=== PATIENT | female | born 1975 | race Caucasian/White ===

== ENCOUNTER → 2017-05-06 | Outpatient (CLI) | payer BC ==
[2017-05-06 13:17] LABS: CREATININE 0.9 mg/dL (0.6-1.3)
== END ==
LOC: M.CT 12:53 → M.LAB 13:30 → M.CT 15:00
PROVIDERS: Family Medicine
DX: N28.1 Cyst of kidney, acquired (principal); K42.9 Umbilical hernia without obstruction or gangrene; K76.0 Fatty (change of) liver, not elsewhere classified; K44.9 Diaphragmatic hernia without obstruction or gangrene

== ENCOUNTER → 2017-05-28 | Outpatient (CLI) | payer BC | LOC: M.NUC 07:35 | DX: R10.11 Right upper quadrant pain (principal); Z68.45 Body mass index [BMI] 70 or greater, adult ==

== ENCOUNTER → 2018-04-23 | Outpatient (CLI) | payer BC | LOC: M.ULTRA 13:30 | DX: M25.462 Effusion, left knee (principal) ==

== ENCOUNTER 2020-11-16 13:15 | Emergency (ER) | payer BC ==
[~2020-11-16] VITALS: Ht 160 cm; Wt 174.6 kg
[2020-11-16] MEDS ORDERED: NOVOLOG100 UNIT/M SUBQ (13:38)
[2020-11-16] MEDS ORDERED: TRULICITY3 MG/0.5 M SUBQ (13:38)
[2020-11-16] MEDS ORDERED: METFORMIN HCL500 M3 PO (13:38)
[2020-11-16] MEDS ORDERED: JARDIANCE25 MG PO (13:39)
[2020-11-16] MEDS ORDERED: L-THROXINE (13:39)
[2020-11-16] MEDS ORDERED: LIPITOR 10 MG10 M1 PO (13:40)
[2020-11-16] MEDS ORDERED: BUPROPION XL300 MG PO (13:40)
[2020-11-16] MEDS ORDERED: FUROSEMIDE 20 M20 MG PO (13:40)
[2020-11-16] MEDS ORDERED: PRADAXA150 MG PO (13:41)
[2020-11-16] MEDS ORDERED: LEXAPRO 10 MG T10 M2 PO (13:41)
[2020-11-16] MEDS ORDERED: KLOR-CON 10 ER10 MEQ PO (13:41)
[2020-11-16] MEDS ORDERED: BARIATRIC MV-I1 EACH PO (13:42)
[2020-11-16] MEDS ORDERED: COZAAR 25 MG TA25 M1 PO (13:42)
[2020-11-16] MEDS ORDERED: CALCIUM 1,0001 EACH PO (13:43)
[2020-11-16] MEDS ORDERED: PERFECT IRON25 MG PO (13:44)
[2020-11-16] MEDS ORDERED: TYLENOL PM EX-1 EACH PO (13:45)
[2020-11-16] MEDS ORDERED: NASCOBAL1 EACH PO (13:46)
[2020-11-16 13:52] LABS: HEMATOCRIT 44.1 % (37.0-47.0); HEMOGLOBIN 14.9 gm/dL (12.0-15.0); MCH 30.3 pg (26.0-34.0); MCHC 33.8 g/dL (28.0-37.0); MCV 89.6 fL (80.0-100.0); MPV 7.8 fl. (7.2-11.1); RBC 4.93 mil/uL (4.20-5.00); RDW-CV 15.4 % (10.5-14.5); WBC 10.2 thou/uL (4.0-11.0)
[2020-11-16 13:58] LABS: CALCIUM 9.2 mg/dL (8.5-10.1); POTASSIUM 3.8 mmol/L (3.5-5.1)
[2020-11-16 14:04] LABS: ALBUMIN 3.6 g/dL (3.4-5.0); TOTAL BILIRUBIN 0.3 mg/dL (<0.1-1.0); TOTAL PROTEIN 7.6 g/dL (6.4-8.2)
[2020-11-16 16:51] VITALS: BP 123/54
--- NOTE | 2020-11-17 15:08 | EKG ---
[place] [address] ELECTROCARDIOGRAM REPORT Name: PENNY HUNTLEY Room: [facility]#: [id number] Admission: 11/16/20 Attend Phys: Discharge: 11/16/20 Date of : 77 Date of Service: 11/16/20 1320 Report #: [id number] THIS REPORT FOR: //name// [facility] ED Test Date: 2020-11-16 Test Time: 13:20:48 Pat Name: PENNY HUNTLEY Department: Room: Gender: Service Line Coordinator: CHECO : 1975 Requested By: Daniel Larson Order Number: [id number] MD: Ja Zimmerman Measurements Intervals [place] Rate: 110 P: 34 WV: 151 QRS: -9 QRSD: 86 T: 23 QT: 309 QTc: 419 Interpretive Statements Sinus tachycardia Anterior infarct, old possible Baseline wander in lead(s) V1 No previous ECG available for comparison Electronically Signed On 11-17-2020 15:08:19 CDT by Ja Zimmerman [email or web address] <ELECTRONICALLY SIGNED> By: Ja Zimmerman MD, [facility] 11/17/20 1508 1320 1320 Ja Zimmerman MD, [facility] /EPI
== END 2020-11-16 16:52 | disposition home or self-care (01) ==
LOC: M.ERS 13:15
PROVIDERS: Emergency Medicine
DX: R07.89 Other chest pain (principal); I10 Essential (primary) hypertension; E03.9 Hypothyroidism, unspecified; E11.9 Type 2 diabetes mellitus without complications; G47.30 Sleep apnea, unspecified; Z88.0 Allergy status to penicillin

== ENCOUNTER 2021-02-03 07:19 | Emergency (ER) | payer BC ==
[~2021-02-03] VITALS: Ht 162.6 cm; Wt 174.6 kg
[~2021-02-03 07:19] MED LIST: BARIATRIC MV-I1 EACH PO; BUPROPION XL300 MG PO; CALCIUM 1,0001 EACH PO; COZAAR 25 MG TA25 M1 PO; FUROSEMIDE 20 M20 MG PO; JARDIANCE25 MG PO; KLOR-CON 10 ER10 MEQ PO; L-THROXINE; LEXAPRO 10 MG T10 M2 PO; LIPITOR 10 MG10 M1 PO; METFORMIN HCL500 M3 PO; NASCOBAL1 EACH PO; NOVOLOG100 UNIT/M SUBQ; PERFECT IRON25 MG PO; PRADAXA150 MG PO; TRULICITY3 MG/0.5 M SUBQ; TYLENOL PM EX-1 EACH PO
[2021-02-03] MEDS ORDERED: OTHER (07:39)
[2021-02-03] MEDS ORDERED: BACTRIM DS TAB1 EAC1 PO (07:39)
[2021-02-03 07:59] LABS: BE -2.5 mmol/L (-2 to +3); PCO2 VENOUS 41.4 mmHg (41.0-51.0); PO2 VENOUS 28.1 mmHg (35.0-45.0)
[2021-02-03 08:03] LABS: ABSOLUTE LYMPHOCYTES 1.1 thou/uL (0.8-5.3); ABSOLUTE MONOCYTES 0.2 thou/uL (0.0-1.2); BASOPHILS 0.8 %; EOSINOPHILS 0.9 %; HEMATOCRIT 40.5 % (37.0-47.0); HEMOGLOBIN 13.1 gm/dL (12.0-15.0); LYMPHOCYTES 25.1 %; MCH 28.4 pg (26.0-34.0); MCHC 32.4 g/dL (28.0-37.0); MCV 87.7 fL (80.0-100.0); MONOCYTES 4.8 %; MPV 7.8 fl. (7.2-11.1); NUCLEATED RBCS 0 /100WBC; PLATELET COUNT* 299 thou/uL (150-400); POLYS 68.4 %; RBC 4.62 mil/uL (4.20-5.00); RDW-CV 15.1 % (10.5-14.5); WBC 4.3 thou/uL (4.0-11.0)
[2021-02-03 08:15] LABS: CALCIUM 8.2 mg/dL (8.5-10.1); CREATININE 0.9 mg/dL (0.6-1.3); POTASSIUM 3.5 mmol/L (3.5-5.1)
[2021-02-03 08:19] LABS: ALBUMIN 3.1 g/dL (3.4-5.0); TOTAL BILIRUBIN 0.2 mg/dL (<0.1-1.0); TOTAL PROTEIN 6.4 g/dL (6.4-8.2)
[2021-02-03 08:30] LABS: URINE BILIRUBIN NEGATIVE (Negative); URINE BLOOD NEGATIVE (Negative); URINE CLARITY CLOUDY; URINE COLOR YELLOW; URINE GLUCOSE-RANDOM NEGATIVE (Negative); URINE KETONES TRACE (Negative); URINE LEUKOCYTES-REFLEX NEGATIVE (Negative); URINE NITRITE-REFLEX NEGATIVE (Negative); URINE PROTEIN 1+ (Negative); URINE SPECIFIC GRAVITY >= 1.030 (1.005-1.030); URINE UROBILINOGEN 0.2 E.U./dl (0.2-1.0)
[2021-02-03] MEDS ORDERED: TESSALON PERLE100 M1 PO (10:16)
[2021-02-03] MEDS ORDERED: ZOFRAN ODT4 MG DISSOLVE (10:16)
--- NOTE | 2021-02-03 10:23 | EKG ---
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
[2021-02-03 10:30] VITALS: BP 128/61
== END 2021-02-03 10:30 | disposition home or self-care (01) ==
LOC: M.ERS 07:19
PROVIDERS: Emergency Medicine Emergency Medical Services
DX: U07.1 COVID-19 (principal); K52.9 Noninfective gastroenteritis and colitis, unspecified; R11.2 Nausea with vomiting, unspecified; E11.9 Type 2 diabetes mellitus without complications; E03.9 Hypothyroidism, unspecified; I10 Essential (primary) hypertension; Z98.890 Other specified postprocedural states; Z79.4 Long term (current) use of insulin; Z79.899 Other long term (current) drug therapy; Z79.2 Long term (current) use of antibiotics; Z88.0 Allergy status to penicillin

== ENCOUNTER 2021-02-04 23:16 | Inpatient (IN) | payer BC ==
[~2021-02-04] VITALS: Ht 162.6 cm; Wt 174.6 kg
[~2021-02-04 23:16] MED LIST changes: +BACTRIM DS TAB1 EAC1 PO; +OTHER; +TESSALON PERLE100 M1 PO; +ZOFRAN ODT4 MG DISSOLVE
[2021-02-04 23:17] VITALS: BP 104/54
[2021-02-04 23:55] LABS: ABSOLUTE EOSINOPHILS 0.1 thou/uL (0.0-0.7); ABSOLUTE LYMPHOCYTES 1.1 thou/uL (0.8-5.3); ABSOLUTE MONOCYTES 0.2 thou/uL (0.0-1.2); ABSOLUTE NEUTROPHILS 3.4 thou/uL (1.6-8.1); BASOPHILS 0.8 %; EOSINOPHILS 1.1 %; HEMATOCRIT 39.9 % (37.0-47.0); HEMOGLOBIN 12.9 gm/dL (12.0-15.0); LYMPHOCYTES 23.6 %; MCH 28.6 pg (26.0-34.0); MCHC 32.4 g/dL (28.0-37.0); MCV 88.3 fL (80.0-100.0); MONOCYTES 3.2 %; MPV 7.8 fl. (7.2-11.1); NUCLEATED RBCS 0 /100WBC; PLATELET COUNT* 284 thou/uL (150-400); POLYS 71.3 %; RBC 4.52 mil/uL (4.20-5.00); RDW-CV 15.1 % (10.5-14.5); WBC 4.8 thou/uL (4.0-11.0)
[2021-02-05] VITALS (7 sets, daily range): BP systolic 97–140; BP diastolic 59–87
[2021-02-05] LABS: CALCIUM 8.1 mg/dL (8.5-10.1); CREATININE 0.9 mg/dL (0.6-1.3)
[2021-02-05 00:10] LABS: ALBUMIN 2.7 g/dL (3.4-5.0); MAGNESIUM 1.9 mg/dL (1.8-2.4); TOTAL BILIRUBIN 0.3 mg/dL (<0.1-1.0); TOTAL PROTEIN 6.9 g/dL (6.4-8.2)
--- NOTE | 2021-02-05 16:12 | EKG ---
[place] [address] ELECTROCARDIOGRAM REPORT Name: PENNY HUNTLEY Room: [address] ADM IN .R.#: [id number] Admission: 02/05/21 Attend Phys: Marlena Marie, Discharge: Date of : 77 Date of Service: 02/04/21 2319 Report #: [id number] THIS REPORT FOR: //name// [facility] ED Test Date: 2021-02-04 Test Time: 23:19:03 Pat Name: PENNY HUNTLEY Department: Room: [facility] Gender: F Print Designer: [place] : 1975 Requested By: Nubia Chavis Order Number: [id number] MD: Wolf Lee Measurements Intervals [place] Rate: 110 P: 47 [place]: 173 QRS: 22 QRSD: 82 T: 24 QT: 320 QTc: 433 Interpretive Statements Sinus tachycardia poor r wave progression Ventricular premature complex Compared to ECG 02/03/2021 08:18:25 Ventricular premature complex(es) now present pvc noted Electronically Signed On 02-05-2021 16:11:58 CDT by Wolf Lee [email or web address] <ELECTRONICALLY SIGNED> By: Wolf Lee MD, FACC 02/05/21 1611 18 18 Wolf Lee MD, FACC /EPI
[2021-02-05 21:04] LABS: INFLUENZA A ANTIGEN Negative (Negative); INFLUENZA B ANTIGEN Negative (Negative)
[2021-02-06] VITALS: BP 118/70
[2021-02-06 03:49] VITALS: BP 104/57
[2021-02-06 04:10] LABS: HEMATOCRIT 36.3 % (37.0-47.0); HEMOGLOBIN 12.1 gm/dL (12.0-15.0); MCH 28.7 pg (26.0-34.0); MCHC 33.3 g/dL (28.0-37.0); MCV 86.4 fL (80.0-100.0); RBC 4.2 mil/uL (4.20-5.00); RDW-CV 15.2 % (10.5-14.5); WBC 3.9 thou/uL (4.0-11.0)
[2021-02-06 04:31] LABS: ALBUMIN 2.5 g/dL (3.4-5.0); CREATININE 0.8 mg/dL (0.6-1.3); MAGNESIUM 2.3 mg/dL (1.8-2.4); POTASSIUM 3.7 mmol/L (3.5-5.1); TOTAL BILIRUBIN 0.2 mg/dL (<0.1-1.0); TOTAL PROTEIN 6.5 g/dL (6.4-8.2)
[2021-02-06 08:15] VITALS: BP 120/65
[2021-02-06 12:00] VITALS: BP 121/61
[2021-02-06 16:00] VITALS: BP 121/70
[2021-02-06 20:00] VITALS: BP 136/76
[2021-02-07 00:36] VITALS: BP 117/51
[2021-02-07 04:28] VITALS: BP 141/55
[2021-02-07 04:37] LABS: HEMATOCRIT 35.1 % (37.0-47.0); HEMOGLOBIN 11.5 gm/dL (12.0-15.0); MCH 28.5 pg (26.0-34.0); MCHC 32.8 g/dL (28.0-37.0); MPV 8.1 fl. (7.2-11.1); RBC 4.03 mil/uL (4.20-5.00); RDW-CV 15.1 % (10.5-14.5); WBC 5.5 thou/uL (4.0-11.0)
[2021-02-07 04:56] LABS: ALBUMIN 2.4 g/dL (3.4-5.0); CALCIUM 8.3 mg/dL (8.5-10.1); CREATININE 0.7 mg/dL (0.6-1.3); MAGNESIUM 2.2 mg/dL (1.8-2.4); POTASSIUM 3.6 mmol/L (3.5-5.1); TOTAL BILIRUBIN 0.2 mg/dL (<0.1-1.0); TOTAL PROTEIN 6.2 g/dL (6.4-8.2)
[2021-02-07 08:00] VITALS: BP 130/61
[2021-02-07 12:51] VITALS: BP 139/73
[2021-02-07 16:30] VITALS: BP 131/63
[2021-02-07 20:00] VITALS: BP 127/68
[2021-02-08] VITALS (7 sets, daily range): BP systolic 104–142; BP diastolic 51–70
[2021-02-08 07:53] LABS: CALCIUM 8.2 mg/dL (8.5-10.1); CREATININE 0.6 mg/dL (0.6-1.3); POTASSIUM 3.5 mmol/L (3.5-5.1)
[2021-02-09 04:43] VITALS: BP 118/67
[2021-02-09 09:00] VITALS: BP 148/101
[2021-02-09 12:00] VITALS: BP 131/54
[2021-02-09] MEDS ORDERED: LEVOFLOXACIN500 MG PO (16:44)
[2021-02-09] MEDS ORDERED: PREDNISONE 10 M10 MG PO (16:44)
[2021-02-09] MEDS ORDERED: VENTOLIN HFA INH8 GM INH (16:44)
[2021-02-09 17:27] VITALS: BP 131/54
[2021-02-09 19:20] VITALS: BP 131/54
== END 2021-02-09 16:30 | disposition home or self-care (01) | DRG 177 ==
LOC: M.ERS 23:16 → M.TBA-ER 02-05 00:26 → M.ORTHSURG 02-05 00:26
PROVIDERS: Emergency Medicine; ADMIT Internal Medicine; ATTEND Internal Medicine
PROC: 5A09357 Assistance with Respiratory Ventilation, Less than 24 Consecutive Hours, Continuous Positive Airway Pressure (ICD-10-PCS; 2021-02-06)
PROC: 5A0935A Assistance with Respiratory Ventilation, Less than 24 Consecutive Hours, High Flow/Velocity Cannula (ICD-10-PCS; 2021-02-07)
PROC: 5A09357 Assistance with Respiratory Ventilation, Less than 24 Consecutive Hours, Continuous Positive Airway Pressure (ICD-10-PCS; 2021-02-08)
PROC: 5A09357 Assistance with Respiratory Ventilation, Less than 24 Consecutive Hours, Continuous Positive Airway Pressure (ICD-10-PCS; 2021-02-08)
PROC: XW13325 Transfusion of Convalescent Plasma (Nonautologous) into Peripheral Vein, Percutaneous Approach, New Technology Group 5 (ICD-10-PCS; principal; 2021-02-09)
DX: U07.1 COVID-19 (principal); J12.82 Pneumonia due to coronavirus disease 2019; J96.01 Acute respiratory failure with hypoxia; E24.9 Cushing's syndrome, unspecified; E11.9 Type 2 diabetes mellitus without complications; E03.9 Hypothyroidism, unspecified; E78.5 Hyperlipidemia, unspecified; Z88.0 Allergy status to penicillin; I10 Essential (primary) hypertension

== ENCOUNTER → 2021-02-28 | Outpatient (CLI) | payer BC ==
[~2021-02-28] MED LIST changes: +LEVOFLOXACIN500 MG PO; +PREDNISONE 10 M10 MG PO; +VENTOLIN HFA INH8 GM INH
== END ==
LOC: M.WC 10:00
PROVIDERS: ATTEND Surgery
DX: T81.31XD Disruption of external operation (surgical) wound, not elsewhere classified, subsequent encounter (principal); E11.628 Type 2 diabetes mellitus with other skin complications; E24.9 Cushing's syndrome, unspecified; E03.9 Hypothyroidism, unspecified; I89.0 Lymphedema, not elsewhere classified; M19.90 Unspecified osteoarthritis, unspecified site; I83.90 Asymptomatic varicose veins of unspecified lower extremity; L84 Corns and callosities; E66.01 Morbid (severe) obesity due to excess calories; G47.30 Sleep apnea, unspecified; F41.9 Anxiety disorder, unspecified; Z86.16 Personal history of COVID-19; Z86.711 Personal history of pulmonary embolism; Z87.891 Personal history of nicotine dependence; Z79.4 Long term (current) use of insulin; Z79.899 Other long term (current) drug therapy; Z68.44 Body mass index [BMI] 60.0-69.9, adult; Z90.89 Acquired absence of other organs; Z98.890 Other specified postprocedural states; Y83.8 Other surgical procedures as the cause of abnormal reaction of the patient, or of later complication, without mention of misadventure at the time of the procedure

== ENCOUNTER → 2021-03-07 | Outpatient (CLI) | payer BC | LOC: M.WC 10:00 | PROVIDERS: ATTEND Surgery | DX: T81.31XD Disruption of external operation (surgical) wound, not elsewhere classified, subsequent encounter (principal); E11.628 Type 2 diabetes mellitus with other skin complications; L84 Corns and callosities; E24.9 Cushing's syndrome, unspecified; E03.9 Hypothyroidism, unspecified; I89.0 Lymphedema, not elsewhere classified; I83.90 Asymptomatic varicose veins of unspecified lower extremity; E66.01 Morbid (severe) obesity due to excess calories; G47.30 Sleep apnea, unspecified; K21.9 Gastro-esophageal reflux disease without esophagitis; M19.90 Unspecified osteoarthritis, unspecified site; F41.9 Anxiety disorder, unspecified; Z86.16 Personal history of COVID-19; Z86.711 Personal history of pulmonary embolism; Z87.891 Personal history of nicotine dependence; Z79.4 Long term (current) use of insulin; Z68.44 Body mass index [BMI] 60.0-69.9, adult; Z90.89 Acquired absence of other organs; Y83.8 Other surgical procedures as the cause of abnormal reaction of the patient, or of later complication, without mention of misadventure at the time of the procedure ==

== ENCOUNTER 2021-03-13 11:14 | Emergency (ER) | payer BC ==
[~2021-03-13] VITALS: Ht 162.6 cm; Wt 163.3 kg
[~2021-03-13 11:14] MED LIST changes: -L-THROXINE; -LIPITOR 10 MG10 M1 PO; +LIPITOR 20 MG T20 M1 PO; +SYNTHROID25 MC1 PO
[2021-03-13] MEDS ORDERED: PRILOSEC OTC20 MG PO (11:29)
[2021-03-13 11:43] LABS: URINE BLOOD NEGATIVE (Negative); URINE CLARITY CLEAR; URINE COLOR YELLOW; URINE GLUCOSE-RANDOM NEGATIVE (Negative); URINE KETONES 1+ (Negative); URINE LEUKOCYTES-REFLEX NEGATIVE (Negative); URINE NITRITE-REFLEX NEGATIVE (Negative); URINE PROTEIN NEGATIVE (Negative); URINE SPECIFIC GRAVITY >= 1.030 (1.005-1.030); URINE UROBILINOGEN 0.2 E.U./dl (0.2-1.0)
[2021-03-13 11:47] LABS: URINE BILIRUBIN 2+ (Negative)
[2021-03-13 11:56] LABS: ABSOLUTE BASOPHILS 0.1 thou/uL (0.0-0.2); ABSOLUTE EOSINOPHILS 0.1 thou/uL (0.0-0.7); ABSOLUTE LYMPHOCYTES 2.6 thou/uL (0.8-5.3); ABSOLUTE MONOCYTES 0.6 thou/uL (0.0-1.2); ABSOLUTE NEUTROPHILS 5.1 thou/uL (1.6-8.1); BASOPHILS 1.1 %; EOSINOPHILS 1.5 %; HEMATOCRIT 39.8 % (37.0-47.0); HEMOGLOBIN 13.3 gm/dL (12.0-15.0); LYMPHOCYTES 30.8 %; MCH 29.4 pg (26.0-34.0); MCHC 33.4 g/dL (28.0-37.0); MCV 88.2 fL (80.0-100.0); MONOCYTES 6.7 %; MPV 8.2 fl. (7.2-11.1); NUCLEATED RBCS 0 /100WBC; PLATELET COUNT* 370 thou/uL (150-400); POLYS 59.9 %; RBC 4.51 mil/uL (4.20-5.00); RDW-CV 16.3 % (10.5-14.5); WBC 8.6 thou/uL (4.0-11.0)
[2021-03-13 12:06] LABS: CALCIUM 8.8 mg/dL (8.5-10.1); CREATININE 0.7 mg/dL (0.6-1.3); POTASSIUM 5.4 mmol/L (3.5-5.1)
[2021-03-13 12:11] LABS: ALBUMIN 2.6 g/dL (3.4-5.0); TOTAL BILIRUBIN 0.5 mg/dL (<0.1-1.0)
--- NOTE | 2021-03-13 12:30 | EKG ---
[place] [address] ELECTROCARDIOGRAM REPORT Name: HUNTLEY,PENNY KENNETH Room: [facility]#: [id number] Admission: 03/13/21 Attend Phys: Discharge: Date of : 77 Date of Service: 03/13/21 1149 Report #: [id number] THIS REPORT FOR: //name// [facility] ED Test Date: 2021-03-13 Test Time: 11:49:51 Pat Name: PENNY HUNTLEY Department: Room: Gender: F Leadership Program Intern: HELEN : 1975 Requested By: Hever Sosa Order Number: [id number] MD: Wolf Lee Measurements Intervals [place] Rate: 106 P: 56 [place]: 156 QRS: 36 QRSD: 77 T: 22 QT: 350 QTc: 465 Interpretive Statements Sinus tachycardia Probable left atrial enlargement Compared to ECG 02/04/2021 23:19:03 Ventricular premature complex(es) no longer present Electronically Signed On 03-13-2021 12:30:09 ROLL GRINDER OPERATOR by Wolf Lee [email or web address] <ELECTRONICALLY SIGNED> By: Wolf Lee MD, [facility] 03/13/21 1230 1149 1149 oWlf Lee MD, [facility] /EPI
[2021-03-13] MEDS ORDERED: CIPRO500 M1 PO (13:47)
[2021-03-13] MEDS ORDERED: ZOFRAN ODT4 MG DISSOLVE (13:47)
[2021-03-13 14:24] VITALS: BP 129/53
== END 2021-03-13 14:25 | disposition home or self-care (01) ==
LOC: M.ERS 11:14
PROVIDERS: Emergency Medicine Emergency Medical Services
DX: R19.7 Diarrhea, unspecified (principal); R11.2 Nausea with vomiting, unspecified; E11.9 Type 2 diabetes mellitus without complications; G47.30 Sleep apnea, unspecified; E03.9 Hypothyroidism, unspecified; I10 Essential (primary) hypertension; Z86.16 Personal history of COVID-19; Z79.899 Other long term (current) drug therapy; Z79.4 Long term (current) use of insulin; Z88.0 Allergy status to penicillin

== ENCOUNTER → 2021-03-14 | Outpatient (CLI) | payer BC ==
[~2021-03-14] MED LIST changes: +CIPRO500 M1 PO; +PRILOSEC OTC20 MG PO
== END ==
LOC: M.WC 09:11
PROVIDERS: ATTEND Surgery
DX: T81.31XD Disruption of external operation (surgical) wound, not elsewhere classified, subsequent encounter (principal); E11.628 Type 2 diabetes mellitus with other skin complications; L84 Corns and callosities; E03.9 Hypothyroidism, unspecified; I89.0 Lymphedema, not elsewhere classified; M19.90 Unspecified osteoarthritis, unspecified site; I83.90 Asymptomatic varicose veins of unspecified lower extremity; G47.30 Sleep apnea, unspecified; E66.01 Morbid (severe) obesity due to excess calories; F41.9 Anxiety disorder, unspecified; Z68.44 Body mass index [BMI] 60.0-69.9, adult; Z86.16 Personal history of COVID-19; Z86.711 Personal history of pulmonary embolism; Z79.4 Long term (current) use of insulin; Z79.899 Other long term (current) drug therapy; Z87.891 Personal history of nicotine dependence; Z98.890 Other specified postprocedural states; Y83.8 Other surgical procedures as the cause of abnormal reaction of the patient, or of later complication, without mention of misadventure at the time of the procedure

== ENCOUNTER 2021-03-21 04:27 | Observation (INO) | payer BC ==
[~2021-03-21] VITALS: Ht 157.5 cm; Wt 177.5 kg
[2021-03-21 04:28] VITALS: BP 128/69
[2021-03-21 05:06] LABS: ABSOLUTE BASOPHILS 0.1 thou/uL (0.0-0.2); ABSOLUTE EOSINOPHILS 0.1 thou/uL (0.0-0.7); ABSOLUTE MONOCYTES 0.4 thou/uL (0.0-1.2); ABSOLUTE NEUTROPHILS 3.5 thou/uL (1.6-8.1); BASOPHILS 0.9 %; EOSINOPHILS 1.1 %; HEMATOCRIT 41.9 % (37.0-47.0); HEMOGLOBIN 13.3 gm/dL (12.0-15.0); LYMPHOCYTES 42.4 %; MCH 28.4 pg (26.0-34.0); MCHC 31.7 g/dL (28.0-37.0); MCV 89.6 fL (80.0-100.0); MONOCYTES 6.3 %; MPV 8.1 fl. (7.2-11.1); NUCLEATED RBCS 0 /100WBC; PLATELET COUNT* 300 thou/uL (150-400); POLYS 49.3 %; RBC 4.68 mil/uL (4.20-5.00); RDW-CV 16.5 % (10.5-14.5); WBC 7.1 thou/uL (4.0-11.0)
[2021-03-21 05:12] LABS: CALCIUM 8.6 mg/dL (8.5-10.1); CREATININE 0.7 mg/dL (0.6-1.3)
[2021-03-21 05:15] LABS: POTASSIUM 2.8 mmol/L (3.5-5.1)
[2021-03-21 05:17] LABS: ALBUMIN 2.5 g/dL (3.4-5.0); MAGNESIUM 1.9 mg/dL (1.8-2.4); TOTAL BILIRUBIN 0.2 mg/dL (<0.1-1.0); TOTAL PROTEIN 6.2 g/dL (6.4-8.2)
[2021-03-21 09:42] VITALS: BP 133/73
[2021-03-21 12:20] VITALS: BP 128/69
[2021-03-21 12:48] LABS: URINE BILIRUBIN NEGATIVE (Negative); URINE BLOOD NEGATIVE (Negative); URINE CLARITY CLEAR; URINE COLOR YELLOW; URINE GLUCOSE-RANDOM NEGATIVE (Negative); URINE KETONES NEGATIVE (Negative); URINE LEUKOCYTES-REFLEX NEGATIVE (Negative); URINE NITRITE-REFLEX NEGATIVE (Negative); URINE PROTEIN NEGATIVE (Negative); URINE SPECIFIC GRAVITY >= 1.030 (1.005-1.030); URINE UROBILINOGEN 0.2 E.U./dl (0.2-1.0)
--- NOTE | 2021-03-21 14:21 | EKG ---
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: : 1975 Requested By: Nubia Chavis Order Number: [id number] MD: Ja Zimmerman Measurements Intervals [place] Rate: 70 P: 43 [place]: 198 QRS: 35 QRSD: 87 T: 17 QT: 448 QTc: 484 Interpretive Statements Sinus rhythm Right precordial ST-T abnormalities of indeterminate cause Borderline prolonged QT interval Compared to ECG 03/13/2021 11:49:51 T-wave abnormality now present Sinus tachycardia no longer present Electronically Signed On 03-21-2021 14:20:48 LOAN DOCUMENTS CLOSER by Ja Zimmerman [email or web address] <ELECTRONICALLY SIGNED> By: Ja Zimmerman MD, FACC 03/21/21 1420 0434 0434 Ja Zimmerman MD, FACC /EPI
[2021-03-21 15:51] VITALS: BP 126/64
--- NOTE | 2021-03-21 19:11 | NUR ---
PT REQUESTED IV FLUIDS TO STOP. DISCONNECTED IV FLUIDS PER PT REQUEST.
[2021-03-21 19:50] VITALS: BP 124/66
--- NOTE | 2021-03-22 04:55 | NUR ---
PT A&OX4, VSS ON ROOM AIR - CPAP WHILE SLEEPING, UP AD [place]. IV SALINE LOCKED, PT REFUSED IV FLUIDS. AT APPROX 2100 PT REMOVED HER IV, REFUSED NEW IV INSERTION - NO IV MEDS ON ORDER AT THIS TIME. PRN PO PAIN MED REQUESTED AND GIVEN 1X. NO CO N/V, PT SLEEPING WELL, WILL CONTINUE TO MONITOR.
[2021-03-22 07:40] VITALS: BP 107/59
[2021-03-22 09:39] LABS: HEMATOCRIT 36.2 % (37.0-47.0); HEMOGLOBIN 11.8 gm/dL (12.0-15.0); MCHC 32.7 g/dL (28.0-37.0); MCV 88.5 fL (80.0-100.0); MPV 8.1 fl. (7.2-11.1); RBC 4.09 mil/uL (4.20-5.00); RDW-CV 16.4 % (10.5-14.5); WBC 6.9 thou/uL (4.0-11.0)
[2021-03-22 09:50] LABS: CALCIUM 8.5 mg/dL (8.5-10.1); CREATININE 0.8 mg/dL (0.6-1.3); MAGNESIUM 1.9 mg/dL (1.8-2.4)
[2021-03-22] MEDS ORDERED: COMPAZINE10 M2 PO (11:45)
[2021-03-22] MEDS ORDERED: CORTEF5 MG PO (11:45)
[2021-03-22] MEDS ORDERED: FLORASTOR250 MG PO (11:45)
[2021-03-22] MEDS ORDERED: PREVALITE PACKET4 GM PO (11:45)
[2021-03-22 12:50] VITALS: BP 107/59
[2021-03-22 12:57] VITALS: BP 107/59
--- NOTE | 2021-03-22 13:28 | NUR ---
NO NAUSEA OR VOMITTING NOTED. PATIENT DISCHARGED TO HOME AT THIS TIME WITH . VERBALUZES UNDERSTANDING OF PAPERWORK AND SCRIPTS SENT TO PREFFERED PHARMACY. PATIENT TAKEN OUT VIA WHEELCHAIR WITH ALL BELONGINGS.
--- NOTE | 2021-03-22 15:08 | NUR ---
CM ASSESSMENT ASSESSMENT COMPLETED WITH PT. PT LIVES WITH AND CHILDREN. PT USES A WALKER WHEN GOING LONG DISTANCES. PT IND WITH ADLS. PT HAS NO HX OF SKILLED, REHAB, OR HH. PT DECLINES LINKAGE TO . PT TO BE DC 03/22/21 WITH NO CM NEEDS.
== END 2021-03-22 13:29 | disposition home or self-care (01) ==
LOC: M.ERS 04:27 → M.TBA-ER 05:42 → M.3W 12:30
PROVIDERS: Emergency Medicine; Internal Medicine; ADMIT Internal Medicine; ATTEND Internal Medicine
DX: E87.6 Hypokalemia (principal); Z20.822 Contact with and (suspected) exposure to COVID-19; E27.40 Unspecified adrenocortical insufficiency; E11.9 Type 2 diabetes mellitus without complications; E24.9 Cushing's syndrome, unspecified; E78.5 Hyperlipidemia, unspecified; I10 Essential (primary) hypertension; G47.33 Obstructive sleep apnea (adult) (pediatric); E03.9 Hypothyroidism, unspecified; E44.1 Mild protein-calorie malnutrition; Z87.891 Personal history of nicotine dependence; Z98.890 Other specified postprocedural states